=== PATIENT | female | born 1950 | race Caucasian/White ===

== ENCOUNTER 2022-11-23 07:33 | Outpatient (AMB) | payer MEDICARE, OTHER, SELFPAY ==
--- NOTE | 2022-11-23 07:45 | MHC.OFFVIS ---
Intake Vital Signs 11/23/22 07:56 Height 4 ft 9 in Weight 189 lb BMI 40.9 BP 144/67 H Blood Pressure Location Lt brachial Position Sitting Pulse 74 Intake Visit Reasons: Chronic cough Intake Note: New consult for chronic cough. Patient cc: cough. 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 Accompanied by: Self / Same As Patient Allergies Sulfa (Sulfonamide Antibiotics) Allergy (Intermediate, Verified 11/23/22 07:43) Vomiting Medication List - Last Reviewed 11/23/22 by Milena Villa albuterol sulfate 90 mcg/actuation inhalation atorvastatin 10 mg PO DAILY citalopram 20 mg PO DAILY estradiol (Yuvafem) 10 mcg vaginal 2XW famotidine 40 mg PO DAILY levothyroxine 100 mcg PO DAILY metoprolol succinate ER 50 mg PO DAILY HPI HPI Comments History of Present Illness Details A 72 y/o female with with asthma referred with chronic cough- COPD r/o per pcp note- She is taking famotodine Qhs-she has cough, phlem- causes nausea-omeprazole causes stomach upset- stopped- Cough with losartan-- switched to metoprolo- cough improved- Sleep Apnea- CPAP every noc- followed by Dr. Cobian ENT appointment - still waiting. Appetiteis good- Over all feeling better Colonoscopy up to date-Dr. Gifford- Her - disabled- [facility] Family History (Updated 11/23/22 @ 08:02 by Milena Villa) Father Lung cancer Mother Dementia Heart attack Social History (Updated 11/23/22 @ 08:08 by Aniyah Stovall PA-C) Household Members: Family Household Members Other:: Alcohol intake: current Alcohol intake frequency: holidays/special occasions only Patient Tobacco Use Status: Never used Tobacco Current occupational status: retired Review of Systems Const All systems reviewed & are unremarkable except as noted in HPI and below ENT Reports nasal congestion, Denies odynophagia, Reports post nasal drip, Denies sore throat and Denies throat swelling Card Denies chest pain and Denies dyspnea Resp Denies dyspnea GI Denies abdominal pain, Denies hematochezia, Denies change in bowel habits, Denies heartburn and Denies odynophagia Aller/Immun Denies throat swelling Physical Exam Vital Signs: Last Vital Signs Pulse 74 11/23/22 07:56 BP 144/67 H 11/23/22 07:56 BMI result Body Mass Index 40.9 Const General: cooperative, healthy appearing and comfortable Orientation/consciousness: patient oriented x3 Limitations: no limitations Eyes Sclerae: sclerae normal Resp Effort & Inspection: normal respiratory effort and able to speak in complete sentences Auscultation: clear to auscultation bilaterally, no rales, no rhonchi and no wheezes Cardio Rate: regular rate Rhythm: regular rhythm Heart sounds: S1 normal heart sound present and S2 normal heart sound present Neuro General: patient oriented x3 Psych Speech and movement: Clear speech present Affect: normal affect Attitude: cooperative Assessment & Plan Assessment & Plan (1) Chronic coughing: Comment: Barium- swallow Continue- ppi Declines ppi Code(s): R05.3 - Chronic cough Plan: Need pulmonary records- Orders: Orders FL barium swallow Today R05.3 - Chronic cough Patient Instructions: Barium swallow - she wants to call for results Famotodine Qhs- chew well, eat slowly Call with concerns Follow through with ENT- reenforced Coding Level of Care Code New Pt Level 4 (70540) Diagnoses Chronic coughing R05.3 Time Spent (min) 45
[2022-11-23 07:56] VITALS: BP 144/67; PULSE 74; BMI 40.9
== END 2022-11-23 08:36 | disposition home or self-care (01) ==
PROVIDERS: PCP Internal Medicine; Visit Provider Physician Assistant
DX: R05.3 Chronic cough (principal)
CPT/HCPCS: 99204

== ENCOUNTER → 2022-11-23 07:33 | Outpatient (BNVA) | payer MEDICARE, OTHER, SELFPAY | PROVIDERS: PCP Internal Medicine; Visit Provider Physician Assistant | DX: R05.3 Chronic cough (principal) | CPT/HCPCS: 99202 ==

== ENCOUNTER 2022-12-28 10:03 | Outpatient (REF) | payer MEDICARE, OTHER, SELFPAY ==
--- NOTE | ~2022-12-28 | FL_ITS ---
EXAMINATION: XR FLUOROSCOPY BARIUM SWALLOW WITH AIR CLINICAL INFORMATION: Chronic cough, patient loses voice over time. GERD, dysphasia. Intermittent choking. COMPARISON: None TECHNIQUE: Fluoroscopic air contrast upper barium swallow was performed utilizing standard techniques with thin and thick barium and effervescent granules. Numerous spot images were obtained. FINDINGS: Lateral cine images of the oropharynx and hypopharynx demonstrate normal swallow mechanism with normal epiglottic inversion and soft palate elevation. No tracheal penetration, glottic or subglottic aspiration identified. No nasopharyngeal reflux present. Hypopharyngeal structures appear normal without evidence of mass or diverticulum. Persistent pooling of contrast in the piriform sinuses and vallecula noted which cleared upon subsequent swallows. There was no significant cricopharyngeal achalasia. Dual and single contrast images of the esophagus demonstrate normal caliber, contour, and mucosal pattern. No evidence of stricture, mass, or ulcerations identified. The primary peristaltic wave was propulsive, however was followed by nonpropulsive tertiary contractions consistent with presbyesophagus. Small type I hiatus hernia is present. Episodic mild gastroesophageal reflux was seen during the course of the examination and on reflux views. Dual contrast and single contrast images of the stomach demonstrated normal contour and mucosal pattern without evidence of mass, ulceration, or other abnormality. Contrast freely passed into the gastric antrum and duodenal bulb without delay. Single and air-contrast images of the duodenal bulb demonstrate no abnormality. The duodenal sweep has a normal appearance, course, and mucosal fold appearance. The imaged proximal jejunum has a normal fold pattern and caliber. Somewhat rapid transit of contrast was noted throughout the small bowel, through the jejunum, ileum, and ultimately into the descending colon during the time of the examination. Etiology of this appears unknown. Cholecystectomy clips are noted. Moderate degenerative cervical spinal changes noted. FLUOROSCOPY TIME: 3 minutes 26 seconds Number of Spot Images: 4 fluoroscopic cine runs with image old; 13 fluoroscopic spot images obtained. DOSE AREA PRODUCT: 3218 uGy-m2 (microgray-meter squared) FL/FL barium swallow IMPRESSION: 1. Small type I hiatus hernia. 2. Mild presbyesophagus. 3. Mild gastroesophageal reflux identified throughout the course of the examination to the level of the joaquín. 4. Normal-appearing stomach, duodenal bulb, duodenal sweep, and proximal jejunum. 5. Somewhat fast transit of contrast into the ileum and ascending colon in the short duration of the examination. This is of indeterminate etiology. The small bowel has a normal appearance.
== END 2022-12-28 10:04 | disposition home or self-care (01) ==
LOC: HO.XRAY 10:03
PROVIDERS: PCP Internal Medicine; Visit Provider Physician Assistant
DX: R05.3 Chronic cough (principal); R47.02 Dysphasia; K21.9 Gastro-esophageal reflux disease without esophagitis; R09.89 Other specified symptoms and signs involving the circulatory and respiratory systems
CPT/HCPCS: 74220

== ENCOUNTER → 2022-12-28 10:12 | Outpatient (BNV) | payer MEDICARE, OTHER, SELFPAY | PROVIDERS: PCP Internal Medicine; Visit Provider Radiology Diagnostic Radiology | DX: R05.3 Chronic cough (principal) | CPT/HCPCS: 74221 ==

== ENCOUNTER 2023-01-10 12:45 | Outpatient (AMB) | payer MEDICARE, OTHER, SELFPAY ==
--- NOTE | 2023-01-10 12:53 | A.OFFVIS_ITS ---
Intake Vital Signs 01/10/23 12:55 Height 4 ft 9 in Weight 189 lb 9.561 oz BMI 41.0 BP 137/61 Blood Pressure Location Lt brachial Position Sitting Pulse 77 Intake Visit Reasons: followup Barium Swallow results Intake Note: Rafia presents in the office as a follow up BA swallow. CC: states she is just here for the results. 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 Allergies Sulfa (Sulfonamide Antibiotics) Allergy (Intermediate, Verified 01/10/23 12:55) Vomiting Medication List - Last Reconciled 01/10/23 by Aniyah Stovall PA-C albuterol sulfate 90 mcg/actuation inhalation atorvastatin 10 mg PO DAILY citalopram 20 mg PO DAILY estradiol (Yuvafem) 10 mcg vaginal 2XW famotidine 40 mg PO DAILY levothyroxine 100 mcg PO DAILY metoprolol succinate ER 50 mg PO DAILY HPI HPI Comments History of Present Illness Details A 72 y/o F seen with chronic cough- heartburn- she does not have heartburn Was seen by ENT- no findings-no noted acid- She is associating her cough with her antihypertensives, she will discuss with her PCP she sees coming up soon She has not had any issues with acid since taking famotidine 40 mg daily She has made dietary modifications that seemed to have helped her long. Currently- Left foot stress fracture after slipping on hill- Reviewed barium swallow findings-she makes it very clear she does not want to have any further testing at this time. She has been very stressed [facility] this has been somewhat difficult for her She has no nausea, vomiting, hematemesis, hematochezia fever or chills PFSH Surgical History Hx of colonoscopy Family History Father Lung cancer Mother Dementia Heart attack Social History Household Members: Family Household Members Other:: Alcohol intake: current Alcohol intake frequency: holidays/special occasions only Patient Tobacco Use Status: Never used Tobacco Current occupational status: retired Review of Systems Const All systems reviewed & are unremarkable except as noted in HPI and below Card Denies chest pain and Denies dyspnea Resp Reports cough, Denies pain with cough and Denies dyspnea GI Denies change in stool character Physical Exam Vital Signs: Last Vital Signs Pulse 77 01/10/23 12:55 BP 137/61 01/10/23 12:55 BMI result Body Mass Index 41.0 Const General: cooperative, healthy appearing and comfortable Orientation/consciousness: patient oriented x3 Limitations: no limitations Eyes Sclerae: sclerae normal Resp Effort & Inspection: normal respiratory effort and able to speak in complete sentences Auscultation: clear to auscultation bilaterally, no rales, no rhonchi and no wheezes Cardio Rate: regular rate Rhythm: regular rhythm Heart sounds: S1 normal heart sound present and S2 normal heart sound present Neuro General: patient oriented x3 Extrem Other: Left foot brace/ stress factor- Psych Appearance: well kempt Mental Status: mental status grossly normal Speech and movement: Normal speech and movement present and Clear speech present Affect: Anxious affect present Attitude: cooperative Thought process: Normal thought process present Thought content: Normal thought content present Judgement: Fair judgement present (Psych) Results Reviewed Results Reviewed: FL/FL barium swallow IMPRESSION: 1. Small type I hiatus hernia. 2. Mild presbyesophagus. 3. Mild gastroesophageal reflux identified throughout the course of the examination to the level of the joaquín. 4. Normal-appearing stomach, duodenal bulb, duodenal sweep, and proximal jejunum. 5. Somewhat fast transit of contrast into the ileum and ascending colon in the short duration of the examination. This is of indeterminate etiology. The small bowel has a normal appearance. Assessment & Plan Assessment & Plan (1) Chronic coughing: Comment: Barium- swallow-review- Continue- famotidine 40 mg daily Declines ppi Code(s): R05.3 - Chronic cough (2) Acid reflux: Code(s): K21.9 - Gastro-esophageal reflux disease without esophagitis Plan: Famotidine 40 mg Reflux precautions Remain upright 2-3 hours after eating especially evening meal Plan Follow back few weeks for progress She is somewhat reluctant given other stressors in her life Reinforced importance of follow through Orders: Referrals Cologuard Test Z12.11 - Encounter for screening for malignant neoplasm of colon Patient Instructions: Follow back few weeks for progress She is somewhat reluctant given other stressors in her life Reinforced importance of follow through Reflux precautions reviewed Continue famotidine Dietary modifications, small portions avoid reclining 2-3 hours after eating especially evening Due for colonoscopy, she does not want to have procedure, discussed alternatives to include Cologuard she is agreeable to this. Encouraged to call questions or concerns Appreciate the opportunity assist in care this pleasant patient Coding Level of Care Code Est Pt Level 3 (60639) Diagnoses Chronic coughing R05.3 Acid reflux K21.9 Time Spent (min) 30
[2023-01-10 12:55] VITALS: BP 137/61; PULSE 77; BMI 41.0
== END 2023-01-10 13:28 | disposition home or self-care (01) ==
PROVIDERS: PCP Internal Medicine; Visit Provider Physician Assistant
DX: R05.3 Chronic cough (principal); K21.9 Gastro-esophageal reflux disease without esophagitis
CPT/HCPCS: 99213

== ENCOUNTER → 2023-01-10 12:45 | Outpatient (BNVA) | payer MEDICARE, OTHER, SELFPAY | PROVIDERS: PCP Internal Medicine; Visit Provider Physician Assistant | DX: R05.3 Chronic cough (principal); K21.9 Gastro-esophageal reflux disease without esophagitis | CPT/HCPCS: 99212 ==